=== PATIENT | male | born 1945 | race Caucasian/White ===

== ENCOUNTER 2017-02-02 12:30 | Emergency (ER) | payer MEDICARE, OTHER ==
[~2017-02-02 12:30] MED LIST: ACTONEL35 MG; CALCITRATE200 MG PO; CENTRUM SILVER1 EAC3 PO; FINASTERIDE5 M2 PO; FISH OIL 11000 MG/CA PO; FLEXERIL10 MG PO; FLOMAX0.4 M1 PO; LEVAQUIN750 M1 PO; NORCO 5/325 TAB1 TAB PO; PLAVIX75 M1 PO; PREDNISONE20 M1 PO; PROAIR HFA8.5 GM INH; SOTALOL80 M1 PO; SPIRIVA18 MC1 INH; UROXATRAL10 MG; VIGAMOX3 M1 OP; VITAMIN C PO; VITAMIN D32000 UNI2 PO; XARELTO20 M1 PO; ZADITOR5 M2 OP; ZOCOR10 M1 PO; ZOLPIDEM TARTRA10 M2 PO
[2017-02-02 13:32] LABS: BASO % 0.2 % (0-2); EOS % 1.1 % (0-7); EOSINOPHIL ABSOLUTE COUNT 0.1 tho/cmm (0.0-0.7); HGB-HEMOGLOBIN 12.7 gm/dl (13.5-17.0); IMMATURE GRANULOCYTES ABSOLUTE 0.05 tho/cmm (0-0.03); IMMATURE GRANULOCYTES PERCENT 0.6 % (0-0.3); LYMPH % 9.5 % (20-45); LYMPH ABSOLUTE COUNT 0.9 tho/cmm (0.8-4.5); MCH (MEAN CORPUSCULAR HGB) 32.4 pg (28.0-32.0); MCHC MEAN CORPUSCULAR HGB CONC 35.3 % (32.0-36.0); MCV (MEAN CELL VOLUME) 91.8 fl (82.0-96.0); MEAN PLATELET VOLUME 10.2 cmc (9.4-12.4); MONO % 9.1 % (0-12); MONOCYTE ABSOLUTE COUNT 0.8 tho/cmm (0.0-1.2); NEUTROPHIL ABSOLUTE COUNT 7.2 tho/cmm (1.6-8.0); NEUTROPHIL-AUTOMATED 7.2 tho/cmm (1.6-8.0); NEUTROPHILS % 79.5 % (40-80); PLATELET COUNT 104 tho/cmm (150-450); RED BLOOD COUNT 3.92 mil/cmm (4.40-5.70); RED CELL DISTRIBUTION WIDTH 14.6 % (12.4-16.4)
[2017-02-02] MEDS ORDERED: CENTRUM SILVER1 EAC3 PO (13:33)
[2017-02-02] MEDS ORDERED: PROSCAR5 M1 PO (13:33)
[2017-02-02] MEDS ORDERED: CALCIUM CITRAT1 EA25 PO (13:33)
[2017-02-02] MEDS ORDERED: VITAMIN D-32000 UNI4 PO (13:33)
[2017-02-02] MEDS ORDERED: ASPIRIN EC81 MG PO (13:33)
[2017-02-02 13:34] LABS: INR 1.4 INR (0.9-1.1); PROTHROMBIN TIME 16.3 SECONDS (9.0-13.6)
[2017-02-02] MEDS ORDERED: ZOCOR20 M1 PO (13:34)
[2017-02-02] MEDS ORDERED: FISH OIL 11000 MG/CA PO (13:34)
[2017-02-02] MEDS ORDERED: BETAPACE80 M2 PO (13:34)
[2017-02-02] MEDS ORDERED: PROAIR HFA8.5 GM INH (13:34)
[2017-02-02] MEDS ORDERED: XARELTO20 M1 PO (13:35)
[2017-02-02] MEDS ORDERED: FLOMAX0.4 M1 PO (13:35)
[2017-02-02] MEDS ORDERED: VITAMIN C500 M3 PO (13:35)
[2017-02-02] MEDS ORDERED: REFRESH PLUS1 EACH EACH EYE (13:37)
[2017-02-02 13:44] LABS: ALB/GLOB RATIO 1.1 (0.8-2.0); ALBUMIN 3.4 g/dl (3.5-5.0); ALKALINE PHOSPHATASE 46 U/L (33-138); ALT/SGPT 27 U/L (12-78); ANION GAP 11 mmol/L (0-20); AST/SGOT 22 U/L (10-40); BILIRUBIN,TOTAL 1.3 mg/dl (0.0-1.5); BLOOD UREA NITROGEN 15 mg/dl (6-24); CALCIUM 8.9 mg/dl (8.5-10.5); CARBON DIOXIDE-VENOUS 28 mmol/L (22-32); CHLORIDE 106 mmol/l (96-110); GLUCOSE 92 mg/dL (70-110); POTASSIUM 4.4 mmol/L (3.7-5.1); SODIUM 141 mmol/L (135-145); eGFR VALUE FOR BLACK 89 mL/Min
[2017-02-02] MEDS ORDERED: AMBIEN10 M1 PO (13:47)
[2017-02-02] MEDS ORDERED: CYCLOBENZAPRINE10 M1 PO (13:47)
[2017-02-02] MEDS ORDERED: TYLENOL EXTRA500 M1 PO (13:48)
[2017-02-02] MEDS ORDERED: ZOLOFT25 M1 PO (13:48)
[2017-02-02] MEDS ORDERED: SPIRIVA RESPIMAT4 G1 INH (13:49)
[2017-02-02] MEDS ORDERED: BREO ELLIPTA 21 EACH INH (13:50)
== END 2017-02-02 17:43 ==
LOC: EDMED 12:30
PROVIDERS: Emergency Medicine
DX: H53.2 Diplopia (principal); R51 Headache; J44.9 Chronic obstructive pulmonary disease, unspecified; R20.0 Anesthesia of skin; F17.210 Nicotine dependence, cigarettes, uncomplicated; Z79.82 Long term (current) use of aspirin; Z79.01 Long term (current) use of anticoagulants; I65.21 Occlusion and stenosis of right carotid artery
CPT/HCPCS: A9577